=== PATIENT | female | born 1955 | race Asian ===

== ENCOUNTER 2017-10-03 11:06 | Day surgery (SDC) | payer MEDICARE, OTHER ==
[~2017-10-03] VITALS: Ht 170.2 cm; Wt 91.6 kg
[2017-10-03] VITALS (8 sets, daily range): BP systolic 134–155; BP diastolic 61–74
[~2017-10-03 11:06] MED LIST: Proparacaine 0.5% Opth Soln 15ml LEFT EYE ONE
[2017-10-03] MEDS ORDERED: Cyclopentolate 1% Opth Sol 2ml ONE (11:15)
[2017-10-03] MEDS ORDERED: Phenylephrine 2.5% Op 2ml Soln ONE (11:16)
[2017-10-03] MEDS ORDERED: Proparacaine 0.5% Opth Soln 15ml ONE (11:16)
[2017-10-03] MEDS ORDERED: Tropicamide 1% Opth 15ml Soln ONE (11:16)
[2017-10-03] MEDS: Phenylephrine 2.5% Op 2ml Soln LEFT EYE SCH ×3 (11:38→12:08)
[2017-10-03] MEDS: Cyclopentolate 1% Opth Sol 2ml LEFT EYE SCH ×3 (11:39→12:09)
[2017-10-03] MEDS: Tropicamide 1% Opth 15ml Soln LEFT EYE SCH ×3 (11:39→12:08)
[2017-10-03] MEDS ORDERED: BSS 500ml btl ONE (12:18)
[2017-10-03] MEDS ORDERED: Kenalog-40 1ml Vial ONE (12:18)
[2017-10-03] MEDS ORDERED: Maxitrol Opth Oint 3.5gm ONE (12:18)
[2017-10-03] MEDS ORDERED: Pred Forte 1% Opth Susp 1ml ONE (12:18)
[2017-10-03] MEDS ORDERED: Bupivacaine 0.75% 30ml vial INJ ONE (12:19)
[2017-10-03] MEDS ORDERED: EPINEPHrine 1mg/1ml Amp ONE (12:19)
[2017-10-03] MEDS ORDERED: Tetracaine 0.5% Opth 4ml Soln ONE (12:19)
[2017-10-03] MEDS ORDERED: Dexamethasone 4mg/ml vial ONE (12:19)
[2017-10-03] MEDS ORDERED: Goniosol 2.5% Opth Soln - 15ml ONE (12:20)
[2017-10-03] MEDS ORDERED: Povidone-Iodine 5% opth solution ONE (12:20)
[2017-10-03] MEDS ORDERED: Acetylcholine Injection (OR) ONE (12:20)
[2017-10-03] MEDS ORDERED: Lidocaine 2% MPF 5ml Vial INJ ONE (12:20)
[2017-10-03] MEDS ORDERED: BSS 15ml BTL ONE (12:20)
[2017-10-03] MEDS ORDERED: PLAVIX75 MG ORAL (12:41)
[2017-10-03] MEDS ORDERED: MYFORTIC360 MG PO (12:41)
[2017-10-03] MEDS ORDERED: ASPIR 8181 MG ORAL (12:41)
[2017-10-03] MEDS ORDERED: MOXIFLOXACIN H400 MG PO (12:41)
[2017-10-03] MEDS ORDERED: LR 1000ml 1,000 ML IVLG SCH (12:55)
[2017-10-03] MEDS ORDERED: Sterile Water Irrig 1000ml IRRIG ONE (13:00)
[2017-10-03] MEDS ORDERED: HYDROcodone/Acetamin 7.5/325 tab ORAL PRN (13:00)
[2017-10-03] MEDS ORDERED: Ketorolac 30mg Inj IV PRN ×2 (13:00)
[2017-10-03] MEDS ORDERED: LORazepam Inj 2mg/ml 1ml IV PRN (13:00)
[2017-10-03] MEDS ORDERED: NS Irrig 1000ml ONE (13:00)
[2017-10-03] MEDS ORDERED: DiphenhydrAMINE 50mg/ml Inj IVP PRN (13:00)
[2017-10-03] MEDS ORDERED: Labetalol 5mg/ml 20ml vial IV PRN (13:00)
[2017-10-03] MEDS ORDERED: Hydromorphone 0.5mg/0.5ml inj IVP PRN (13:00)
[2017-10-03] MEDS ORDERED: Atropine Inj 1mg/10ml Syr IV PRN (13:00)
[2017-10-03] MEDS ORDERED: Norco 5mg/325mg tab ORAL PRN (13:00)
[2017-10-03] MEDS ORDERED: Midazolam 2mg/2ml Inj IVP PRN (13:00)
[2017-10-03] MEDS ORDERED: oxyCODONE HCL/Acetaminophen 5/325mg ORAL PRN (13:00)
[2017-10-03] MEDS ORDERED: fentaNYL 100 mcg/2 mL IV PRN (13:00)
--- NOTE | 2017-10-03 13:01 | Anethesia Preoperative Eval ---
Anesthesia Pre-op PMH/ROS General Date of Evaluation: Oct 03, 2017 Time of Evaluation: 13:21 Anesthesiologist: Ericka ASA Score: ASA 3 Mallampati Score Class I : Soft palate, uvula, fauces, pillars visible Class II: Soft palate, uvula, fauces visible Class III: Soft palate, base of uvula visible Class IV: Only hard plate visible Mallampati Classification: Class III Surgeon: Fiorella Diagnosis: Enopthalmos OS Surgical Procedure: Vitrectopmy OS Anesthesia History: none Family History: no anesthesia problems Allergies: Coded Allergies: ADHESIVE TAPE (Verified Allergy, Intermediate, RASH, 10/03/17) CHLORHEXIDINE (Verified Allergy, Intermediate, RASH , 10/03/17) Medications: see eMAR Past Medical History Cardiovascular: Reports: HTN, CAD, PA Gastrointestinal/Genitourinary: Reports: ESRD - Renal TX Endocrine: Reports: DM, other - Hyperthyroidism HEENT: Reports: cataract (L), cataract (R) Hematology/Immune: Reports: anemia Other: obesity - BMI 34 PSxH Narrative: Bilateral Cat, Angioplasty, Cardiac Stent, Renal TX, Cholecystectomy Anesthesia Pre-op Phys. Exam Physician Exam Last Vital Signs Date Time Temp Pulse Resp B/P (MAP) Pulse Ox O2 Delivery O2 Flow Rate FiO2 10/03/17 12:28 98.8 73 19 155/74 97 Room Air 98.8 Constitutional: NAD Neurologic: CN 2-12 intact Cardiovascular: RRR Respiratory: CTA Gastrointestinal: S/NT/ND Airway Exam Mallampati Score: Class III MO: limited ROM: limited Teeth: missing, intact Anesthesia Pre-op A/P Risk Assessment & Plan Assessment: ASA 3 Plan: GA Status Change Before Surgery: Phani Hairston MD Oct 03, 2017 13:01
--- NOTE | 2017-10-03 13:01 | Immediate Post-Op Evaluation ---
Immediate Post-Op Evalulation Immediate Post-Op Evalulation Procedure: Vitrectomy OS Date of Evaluation: Oct 03, 2017 Time of Evaluation: 15:04 IV Fluids: 100 NWS Blood Products: 0 Estimated Blood Loss: 2 Urinary Output: 0 Blood Pressure Systolic: 147 Blood Pressure Diastolic: 63 Pulse Rate: 75 Respiratory Rate: 16 O2 Sat by Pulse Oximetry: 99 Temperature (Fahrenheit): 98.7 Pain Score (1-10): 1 Nausea: No Vomiting: No Complications 0 Patient Status: awake, reacts, patent, none Hydration Status: adequate Phani Barnett MD Oct 03, 2017 13:01
--- NOTE | 2017-10-03 13:02 | 48 Hour Post Anesthesia Eval ---
Post Anesthesia Evaluation Procedure: Vitrectomy OS Date of Evaluation: Oct 03, 2017 Time of Evaluation: 17:11 Blood Pressure Systolic: 152 0: 67 Pulse Rate: 74 Respiratory Rate: 18 Temperature (Fahrenheit): 98.6 O2 Sat by Pulse Oximetry: 98 Airway: patent Nausea: No Vomiting: No Pain Intensity: 1 Hydration Status: adequate Cardiopulmonary Status: Stable Mental Status/LOC: patient returned to baseline Follow-up Care/Observations: 0 Post-Anesthesia Complications: 0 Follow-up care needed: ready to discharge Phani Barnett MD Oct 03, 2017 13:02
[2017-10-03] MEDS ORDERED: SODIUM BICARBO650 MG PO (13:05)
[2017-10-03] MEDS ORDERED: BETIMOL5 M2 OP (13:05)
[2017-10-03] MEDS ORDERED: VITAMIN D400 INTLU ORAL (13:05)
[2017-10-03] MEDS ORDERED: TACROLIMUS1 MG PO (13:05)
[2017-10-03] MEDS ORDERED: DELTASONE20 MG PO (13:05)
--- NOTE | 2017-10-03 13:56 | Pre-Procedure Note/Attestation ---
Pre-Procedure Note/Attestation Complete Prior to Procedure Planned Procedure: left Procedure Narrative: History of endophth, vitreous opacities, possible RD OS Plan for PPV Indications for Procedure Pre-Operative Diagnosis: Above Attestation I attest that I discussed the nature of the procedure; its benefits; risks and complications; and alternatives (and the risks and benefits of such alternatives ), prior to the procedure, with the patient (or the patient's legal admissions representative). I attest that, if there was a reasonable possibility of needing a blood transfusion, the patient (or the patient's legal admissions representative) was given the [facility] standardized written summary, pursuant to the Arsenio Sattley Blood Safety Act ([place] Health and Safety Code # 1645, as amended). I attest that I re-evaluated the patient just prior to the surgery and that there has been no change in the patient's H&P, except as documented below: Michi Barros M.D. Oct 03, 2017 13:56
--- NOTE | 2017-10-03 13:58 | Operative Note - PDOC ---
Operative Note Operative Note Chief Complaint: Vision loss OS Pre-op Diagnosis: Endophthalmitis, possible RD OS Procedure: PPV/AC washout/MP/EL/AFE/SO OS Post-op Diagnosis: Retinal necrosis Surgeon: Fiorella Anesthesia: local Specimen: yes Complications: none Condition: stable Fluids: Min Estimated Blood Loss: none Drains: none Implant(s) used?: Yes Indications for Procedure Pre-operative Diagnosis: Endophthalmitis, glaucoma, possible retinal hemorrhage or detachment, OS Post-operative Diagnosis: Endophthalmitis, retinal necrosis, OS Procedure: Pars plana vitrectomy, AC washout, membrane peel, air-fluid exchange , infusion of silicone oil (1K centistokes), OS Surgeon: Michi Barros M.D. Anesthesia: Peribulbar Complications: None Indications for the procedure: The patient has vision loss due to endophthalmitis and presents today for surgery. After review of the risks, benefits, alternative and the patient signed informed consent into the medical chart. Description of Procedure Procedure performed: The patient was met in the pre-op area where informed consent was reviewed. The operative eye was verified, marked and dilated. The patient was transferred to the operative suite, where cardiopulmonary monitoring was established and peribulbar anesthetic was administered without complications. The eye was prepped and draped in sterile ophthalmic fashion. Under microscope visualization the 23 gauge infusion line was placed inferotemporally. Tne anterior chamber was filled with healon and the pupillary membrane was dissected/displaced. After visualization of the tip in the vitreous cavity, the infusion line was turned on. The superotemporal and superonasal cannulas were placed. The pupillary membrane was then removed. Under BIOM visualization, peripheral and core vitrectomy was performed. As the vitreous was cleared, view of the posterior pole was improved. Of note, the vitreous had clumps of purulent and serosanguinous material. Inspection of the posterior pole revealed extensive membranes that were removed. The underlying retina was severely necrotic. Further peripheral vitrectomy was performed. At this point, given the severity of the retinal damage, air-fluid exchange was performed and silicone oil was infused. The cannulas were removed and sclerotomies were sutured. The eye maintained normal intraocular pressure. Subconjunctival vancomycin and dexamethasone were administered. The lid speculum was removed. The eye was cleaned of prep and drape. Atropine drop and Maxitrol ointment was applied. A pressure patch was placed. The patient was turned over to the anesthesia team and transferred in stable condition to the PACU. Michi Barros M.D. Oct 03, 2017 13:58
[2017-10-03] MEDS ORDERED: ALPHAGAN P5 M2 OP (14:07)
[2017-10-03] MEDS ORDERED: LEVEMIR100 UNIT/1 SUBQ (14:07)
[2017-10-03] MEDS ORDERED: HUMALOG100 UNIT/4 SUBQ (14:07)
[2017-10-03] MEDS ORDERED: CYCLOGYL2 M1 OP (14:07)
[2017-10-03] MEDS ORDERED: PRED FORTE1 ML OP (14:07)
[2017-10-03] MEDS ORDERED: CILOXAN5 ML OP (14:07)
[2017-10-03] MEDS ORDERED: Sodium Hyaluronate 10 mg/ml 0.85ml ONE (14:53)
[2017-10-03] MEDS ORDERED: Propofol 200mg/20ml IV ONE (15:30)
[2017-10-03] MEDS ORDERED: Lidocaine 1% MPF 10mg/ml 5ml ONE (15:30)
[2017-10-03] MEDS ORDERED: Midazolam 2mg/2ml Inj ONE (15:30)
--- NOTE | 2017-10-04 16:14 | Cardiology Report ---
APPROVED REPORT EKG Measurement Heart [id number] Normal sinus rhythm Low voltage QRS Cannot rule out Anterior infarct, age undetermined Abnormal ECG
== END 2017-10-03 16:15 | disposition home or self-care (01) ==
LOC: SUR 11:06
DX: H44.002 Unspecified purulent endophthalmitis, left eye (principal); I13.11 Hypertensive heart and chronic kidney disease without heart failure, with stage 5 chronic kidney disease, or end stage renal disease; E11.22 Type 2 diabetes mellitus with diabetic chronic kidney disease; N18.6 End stage renal disease; I25.2 Old myocardial infarction; Z86.718 Personal history of other venous thrombosis and embolism; Z94.0 Kidney transplant status; Z79.82 Long term (current) use of aspirin; Z83.3 Family history of diabetes mellitus; Z82.49 Family history of ischemic heart disease and other diseases of the circulatory system
CPT/HCPCS: 67025; 67042; 82962; 87070; 87075; 87205; 93005; J0171; J1100; J2250; J2704; J3370; J3490; 94003; 94150